=== PATIENT | male | born 1965 | race Caucasian/White ===

== ENCOUNTER 2021-09-15 15:19 | Emergency (ER) | payer OTHER, SELFPAY ==
[2021-09-15 15:40] VITALS: BP 128/78; PULSE 88; RESP 18; TEMP 36.2; O2SAT 98
[2021-09-15 15:50] VITALS: BP 128/78; PULSE 88; RESP 18; TEMP 36.2; O2SAT 98
--- NOTE | 2021-09-15 15:55 | ED.GENADULT ---
HPI - General Adult General Chief complaint: Upper Respiratory Infection Stated complaint: rt side back pain,lightheaded Time Seen by Provider: 09/15/21 15:55 Source: patient, RN notes reviewed and old records reviewed Mode of arrival: ambulatory Limitations: no limitations History of Present Illness HPI narrative: 55-year-old male presents to [facility] accompanied by son with complaints of right lower back pain which has started on Tuesday. Patient states today he felt lightheaded some nausea and felt like the room was spinning. He reports that he had the sudden onset of back pain when he had COVID in March and is concerned he may have it again. Patient denies any chills or sweats or any sore throat, no cough or any shortness of breath. Patient reports that he developed this vertigo today where the room was spinning and he was nauseated, called his son to drive him because when he turns his head the room spins at times.Patient denies any tinnitus, no feelings or pressure or pain to his ears, denies any headache.He reports that he has maintained a good diet and fluid intake today. MD complaint: right sided back pain vertigo and some nausea Severity scale (1-10): 3 Treatments prior to arrival: NSAID and other (Ibuprofen) Related Data Home Medications Medication Instructions Recorded Confirmed calcium carb-ergocalciferol (vit 1 tablet PO DAILY 09/15/21 09/15/21 D2) 600 mg calcium-200 unit tablet cetirizine 10 mg tablet 10 mg PO DAILY 09/15/21 09/15/21 hydrochlorothiazide 12.5 mg tablet 1 tablet DAILY 09/15/21 09/15/21 lisinopril 10 mg tablet 10 tablet DAILY 09/15/21 09/15/21 omeprazole 40 mg capsule,delayed 1 cap DAILY 09/15/21 09/15/21 release Allergies Allergy/AdvReac Type Severity Reaction Status Date / Time No Known Allergies Allergy Verified 09/15/21 15:48 Review of Systems Review of Systems: CONSTITUTIONAL: Denies fever, chills, or sweats. EYES: Denies visual changes, redness, or discharge. ENT: Denies rhinorrhea, congestion, sore throat, or otalgia. CARDIOVASCULAR: Denies chest pain, palpitations, or edema. RESPIRATORY: Denies cough or dyspnea. GASTROINTESTINAL: Denies abdominal pain, some incidences of nausea,no vomiting, or diarrhea. GENITOURINARY: Denies dysuria or hematuria. SKIN: Denies rash or itching. MUSCULOSKELETAL: Positive for right sided low back pain back pain, joint pain, or myalgia. NEUROLOGIC: Denies headache, numbness, or weakness.positive for vertigo PSYCHIATRIC: Denies anxiety or depression. [facility] Past Medical History Medical History (Updated 09/15/21 @ 16:27 by Nicole Rodriguez NP) COVID-22 March 2021 GERD (gastroesophageal reflux disease) Hypertension Surgical History Surgical History (Updated 09/15/21 @ 16:09 by Nicole Rodriguez NP) Previous back surgery Social History Social History (Updated 09/15/21 @ 16:53 by Nicole Rodriguez NP) Smoking status: Never smoker Alcohol intake: current Alcohol use details: rare Substance use type: does not use Living arrangements: with family Gender identity (if verbalized by the patient): Male Comments At time of signature, agree with nursing past medical, surgical, social and family history. There is no relevant family history pertinent to the presenting complaint Exam Narrative: GENERAL: Well-appearing, well-nourished, and in no acute distress. HEAD: Normocephalic, atraumatic. EYES: PERRLA and EOMI. ENT: Nares clear, no rhinorrhea or epistaxis. Mucous membranes moist.TM's vidal with dull light reflex left ear, throat pink with no lesons or exudates, NECK: Supple.no lymphadenopathy CHEST: Clear to auscultation. No respiratory distress.SAO2 98% on room air HEART: Regular rate and rhythm. No murmur heard. Normal peripheral pulses. ABDOMEN: Soft, nontender, nondistended, normal active bowel sounds. EXTREMITIES: Normal range of motion. No edema.some right sided low back pain with no radiation down legs,circulation
[2021-09-15 19:47] LABS: SARS-CoV-2 RNA PCR Negative
== END 2021-09-15 16:39 | disposition home or self-care (01) ==
PROVIDERS: Emergency Provider Registered Nurse; PCP Family Medicine
DX: M54.50 Low back pain, unspecified (principal); R42 Dizziness and giddiness; Z20.822 Contact with and (suspected) exposure to COVID-19; K21.9 Gastro-esophageal reflux disease without esophagitis; I10 Essential (primary) hypertension; Z86.16 Personal history of COVID-19
CPT/HCPCS: 81003; 87426; 87804; 99213; C9803; G0463; U0003; U0005

== ENCOUNTER 2021-09-24 17:10 | Emergency (ER) | payer OTHER, SELFPAY ==
--- NOTE | 2021-09-24 17:12 | ED.URI ---
HPI - URI/Sore Throat General Chief Complaint: Upper Respiratory Infection Stated Complaint: Sore Throat Time Seen by Provider: 09/24/21 17:20 Source: patient Mode of arrival: ambulatory Limitations: no limitations History of Present Illness HPI Narrative: Mr. Rapp is a 55-year-old male with complaints of a swollen uvula since this morning. He reports this is happened to him before and they gave him a shot. He denies any difficulty breathing or swallowing however he reports that the swelling is causing him to cough as he feels like there is something constantly in the back of his throat. Denies any fever or chills. He denies any sore throat. Related Data Home Medications Medication Instructions Recorded Confirmed calcium carb-ergocalciferol (vit 1 tablet PO DAILY 09/15/21 09/24/21 D2) 600 mg calcium-200 unit tablet cetirizine 10 mg tablet 10 mg PO DAILY 09/15/21 09/24/21 hydrochlorothiazide 12.5 mg tablet 1 tablet DAILY 09/15/21 09/24/21 lisinopril 10 mg tablet 10 tablet DAILY 09/15/21 09/24/21 omeprazole 40 mg capsule,delayed 1 cap DAILY 09/15/21 09/24/21 release Allergies Allergy/AdvReac Type Severity Reaction Status Date / Time No Known Allergies Allergy Verified 09/24/21 17:13 Review of Systems Review of Systems: Pertinent positives per HPI. Patient denies any fever, chills, rash, headache, visual changes, dizziness, cough, runny nose, sore throat, shortness of breath, chest pain, palpitations, nausea, vomiting, diarrhea, constipation, abdominal pain, or any urinary issues. [facility] Past Medical History Medical History (Updated 09/24/21 @ 17:23 by George Johnson, SHAWN) COVID-22 March 2021 GERD (gastroesophageal reflux disease) Hypertension Surgical History Surgical History (Updated 09/15/21 @ 16:09 by Nicole Rodriguez NP) Previous back surgery Social History Social History (Updated 09/15/21 @ 16:53 by Nicole Rodriguez NP) Smoking status: Never smoker Alcohol intake: current Alcohol use details: rare Substance use type: does not use Gender identity (if verbalized by the patient): Male Comments At the time of my signature, I reviewed and agree with the nursing past medical, surgical, social, and family history. There is no relevant family history pertinent to the patient complaint. Exam Narrative: General: Well-developed, well nourished, in no apparent distress Head: Normocephalic, atraumatic Eyes: Pupils equally round and reactive to light bilaterally, EOM intact, sclera and conjunctive clear, no discharge, lids normal Ears: TMs intact and clear, ear canals clear, no drainage, grossly hearing normal. Nose: Nares patent, no discharge, no inflammation, no sinus tenderness. Mouth: Oropharynx without lesions or masses, good dentition, MMM. Mild uvula swelling-nonpainful, even rise and fall of uvula with exam Neck: Supple, trachea midline, no enlargement of anterior or posterior cervical nodes, no thyroid masses or goiter palpable. Cardio: Regular rate and rhythm, s1 and s2 normal, no murmur appreciated. Resp: Clear to auscultation bilaterally anteriorly and posteriorly, no rhonchi, rales, wheezing or rubs Course Course Emergency Course: Portions of this record may have been created with voice recognition software. Level of Care: Express Care Visit Vital Signs Vital signs: Vital Signs Temperature 36.7 C 09/24/21 17:14 Pulse Rate 86 09/24/21 17:14 Respiratory Rate 16 09/24/21 17:14 Blood Pressure 121/82 09/24/21 17:14 Pulse Oximetry 98 09/24/21 17:14 Oxygen Delivery Room Air 09/24/21 17:14 Temperature 36.7 C 09/24/21 17:14 Pulse Rate 86 09/24/21 17:14 Respiratory Rate 16 09/24/21 17:14 Blood Pressure 121/82 09/24/21 17:14 Pulse Oximetry 98 09/24/21 17:14 Oxygen Delivery Room Air 09/24/21 17:14 Vital signs reviewed MDM - URI/Sore Throat MDM Narrative Medical decision making narrative: At the time
[2021-09-24 17:14] VITALS: BP 121/82; PULSE 86; RESP 16; TEMP 36.7; O2SAT 98
== END 2021-09-24 17:28 | disposition home or self-care (01) ==
PROVIDERS: Emergency Provider Nurse Practitioner Family; PCP Family Medicine
DX: K12.2 Cellulitis and abscess of mouth (principal); K21.9 Gastro-esophageal reflux disease without esophagitis; I10 Essential (primary) hypertension; Z86.16 Personal history of COVID-19
CPT/HCPCS: 99213; G0463

== ENCOUNTER 2022-07-11 15:42 | Emergency (ER) | payer OTHER, SELFPAY ==
[2022-07-11 15:45] VITALS: BP 127/71; PULSE 80; RESP 18; TEMP 36.3; O2SAT 100
--- NOTE | 2022-07-11 16:00 | ED.URI ---
HPI - URI/Sore Throat General Chief Complaint: Upper Respiratory Infection Stated Complaint: Sore Throat,Bilateral Ear Irritation,Body Aches Time Seen by Provider: 07/11/22 16:02 Source: patient, RN notes reviewed and old records reviewed Mode of arrival: ambulatory Limitations: no limitations History of Present Illness HPI Narrative: 56-year-old male presents to the [facility] with bilateral ear pain, sore throat and body aches since Tuesday. Had taken Mucinex yesterday. Reports taking COVID test yesterday which he reports is negative. Patient declined COVID and flu testing here. Related Data Home Medications Medication Instructions Recorded Confirmed calcium carb-ergocalciferol (vit 1 tablet PO DAILY 09/15/21 07/11/22 D2) 600 mg calcium-200 unit tablet cetirizine 10 mg tablet 10 mg PO DAILY 09/15/21 07/11/22 hydrochlorothiazide 12.5 mg tablet 1 tablet DAILY 09/15/21 07/11/22 lisinopril 10 mg tablet 10 tablet DAILY 09/15/21 07/11/22 omeprazole 40 mg capsule,delayed 1 cap DAILY 09/15/21 07/11/22 release Allergies Allergy/AdvReac Type Severity Reaction Status Date / Time No Known Allergies Allergy Verified 07/11/22 15:53 Review of Systems Review of Systems: All systems reviewed & are unremarkable except as noted in HPI and below Constitutional: Constitutional: Reports as per HPI and Reports body ache(s) Eyes: Eyes: Reports no additional eye complaints ENT: Reports as per HPI, Reports otalgia and Reports sore throat Cardiovascular: Cardiovascular: Reports no additional cardiovascular complaints, Denies chest pain and Denies dyspnea Respiratory: Respiratory: Reports no additional respiratory complaints, Denies chest congestion, Denies cough and Denies dyspnea Gastrointestinal: Gastrointestinal: Reports no additional gastrointestinal complaints, Denies abdominal pain, Denies nausea and Denies vomiting Musculoskeletal: Musculoskeletal: Reports no additional musculoskeletal complaints Integumentary/Breasts: Skin/Breast: Reports system reviewed and no additional complaints, except as docu Neurologic: Reports system reviewed and no additional complaints, except as documented Psychiatric: Psychiatric: Reports no additional psychiatric complaints Allergic/Immunologic: Allergic/Immunologic: Reports no additional allergic/immunologic complaints PMFSH Past Medical History Medical History (Updated 07/11/22 @ 16:31 by Radha Balderas, SHAWN) COVID-22 March 2021 GERD (gastroesophageal reflux disease) Hypertension Surgical History Surgical History Previous back surgery Social History Social History Smoking status: Never smoker Alcohol intake: current Alcohol use details: rare Substance use type: does not use Living arrangements: with family Gender identity (if verbalized by the patient): Male Comments At the time of my signature, I reviewed and agree with the nursing past medical, surgical, social, and family history. There is no relevant family history pertinent to the patient complaint. Exam Const: General: cooperative, healthy appearing, comfortable, no acute distress, well developed, alert and well nourished Nutritional Appearance: well nourished Orientation/consciousness: patient oriented x3 Limitations: no limitations HENMT: Head: normal to inspection Ears: hearing grossly normal bilaterally, external ears normal, EAC's normal and TM abnormal bulging bilateral and with fluid behind the TM bilateral; not erythematous Face/Nose/Sinus: Normal external nose present, Normal nares present, Normal nasal mucous membranes and turbinates present and normal facial exam Face and sinus: normal facial exam Mouth: Yes Normal oral and palatal mucosa present, Yes lip normal and Yes moist mucous membranes Throat: posterior oropharynx normal, uvula midline and postnasal drainage Eyes: Gene
== END 2022-07-11 16:40 | disposition home or self-care (01) ==
PROVIDERS: Emergency Provider Nurse Practitioner; PCP Family Medicine
DX: J02.9 Acute pharyngitis, unspecified (principal); H65.03 Acute serous otitis media, bilateral; R09.82 Postnasal drip; I10 Essential (primary) hypertension
CPT/HCPCS: 87081; 87880; 99213; G0463

== ENCOUNTER 2022-07-26 17:00 | Emergency (ER) | payer OTHER, SELFPAY ==
--- NOTE | 2022-07-26 17:11 | ED.LOWEXIN ---
HPI - Extremity Injury (Lower) General Stated Complaint: toe injury on rt foot Time Seen by Provider: 07/26/22 17:11 Source: patient Mode of arrival: ambulatory Limitations: no limitations History of Present Illness HPI Narrative: 56-year-old male within right 5th toe fracture presented for complaints of pain and swelling to the right foot. Patient states he kicked a bed frame on 07/18/2022, contact his PCP who ordered an x-ray, and was notified 2 days later that the toe was fractured. Patient provided Xray report which confirms fx to proximal phalanx 5th toe. Reports pain to the base of the right 4th and 5th toes, stating the 4th toe was more bruised. Pain worse with walking. Patient already had a post op shoe at home and has been wearing it. He has also been elevating the foot and applying ice, and alternating Tylenol and ibuprofen. Patient is concerned about the swelling and continued pain. Patient has been attempting to f/u with pcp, stating he did not receive much direction after he was notified of the fracture. 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 Also reports history of foot swelling, but states it is not usually this swollen. Related Data Home Medications Medication Instructions Recorded Confirmed calcium carb-ergocalciferol (vit 1 tablet PO DAILY 09/15/21 07/11/22 D2) 600 mg calcium-200 unit tablet cetirizine 10 mg tablet 10 mg PO DAILY 09/15/21 07/11/22 hydrochlorothiazide 12.5 mg tablet 1 tablet DAILY 09/15/21 07/11/22 lisinopril 10 mg tablet 10 tablet DAILY 09/15/21 07/11/22 omeprazole 40 mg capsule,delayed 1 cap DAILY 09/15/21 07/11/22 release Allergies Allergy/AdvReac Type Severity Reaction Status Date / Time No Known Allergies Allergy Verified 07/26/22 17:17 Review of Systems Review of Systems: CONSTITUTIONAL: Denies body aches, fever, chills CARDIOVASCULAR: Denies chest pain, palpitations, or edema. RESPIRATORY: Denies cough or dyspnea. GASTROINTESTINAL: Denies abdominal pain, nausea, vomiting, or diarrhea. SKIN: Denies rash, itching, or wounds. MUSCULOSKELETAL: per HPI NEUROLOGIC: Denies headache or weakness. All systems reviewed & are unremarkable except as noted in HPI and below PMFSH Past Medical History Medical History COVID-22 March 2021 GERD (gastroesophageal reflux disease) Hypertension Surgical History Surgical History Previous back surgery Social History Social History Smoking status: Never smoker Alcohol intake: current Alcohol use details: rare Substance use type: does not use Living arrangements: with family Gender identity (if verbalized by the patient): Male Comments At time of signature, I have reviewed and agree with nursing past medical, surgical, social and family history unless otherwise noted. Please see nursing chart for further information. There is no relevant family history pertinent to the presenting complaint Exam Narrative: GENERAL: Well-appearing CHEST: Speaks in full sentences. No respiratory distress. HEART: Regular rate and rhythm. Normal and equal peripheral pulses. EXTREMITIES: Right foot has normal strength and sensation, normal range of motion. Moderate right dorsal/lateral foot swelling; Ecchymosis noted to 4th and 5th toes. Tender at base of 5th toe. No open wounds or obvious deformity of the 5th toe; alignment normal. Chronic deformity of 2nd toe. pulse palpable and equal bilaterally, skin warm, dry, pink. Capillary refill less than 3 seconds. Wearing post op shoe. SKIN: Warm, dry, no rash. NEURO: Alert and oriented x3. PSYCH: Normal mood and affect Course Course Emergency Course: Patient is aware of diagnosis, understands and agrees to treatment plan. Anticipatory guidance given. Patient agrees to follow-up as directe
[2022-07-26 17:17] VITALS: BP 123/90; PULSE 76; RESP 16; TEMP 36.6; O2SAT 99
== END 2022-07-26 17:32 | disposition home or self-care (01) ==
PROVIDERS: Emergency Provider Nurse Practitioner Family; PCP Family Medicine
DX: M79.674 Pain in right toe(s) (principal); K21.9 Gastro-esophageal reflux disease without esophagitis; I10 Essential (primary) hypertension; Z86.16 Personal history of COVID-19
CPT/HCPCS: 99211; G0463

== ENCOUNTER 2022-10-04 08:13 | Emergency (ER) | payer OTHER, SELFPAY ==
--- NOTE | 2022-10-04 08:16 | ED.GENADULT ---
HPI - General Adult General Chief complaint: Upper Respiratory Infection Stated complaint: Unknown Time Seen by Provider: 10/04/22 08:25 Source: patient, RN notes reviewed and old records reviewed Mode of arrival: ambulatory Limitations: no limitations History of Present Illness HPI narrative: 56-year-old male presents to the [facility] with vague complaints of feeling head fog and occasional tingling in the front of his forehead since Tuesday, 3 days. Patient states it has been intermittent for the last several months. Has had couple of different episodes. States he seen his primary care provider but has not gotten an answer why it is happening. No treatment prior to arrival. Reports being a borderline diabetic Denies any numbness and tingling in extremities. Denies any chest pain, heart fluttering. Denies any abdominal pain. Denies any fevers Onset (ago): day(s) (3) Treatments prior to arrival: none Related Data Home Medications Medication Instructions Recorded Confirmed calcium carb-ergocalciferol (vit 1 tablet PO DAILY 09/15/21 10/04/22 D2) 600 mg calcium-200 unit tablet cetirizine 10 mg tablet 10 mg PO DAILY 09/15/21 10/04/22 hydrochlorothiazide 12.5 mg tablet 1 tablet DAILY 09/15/21 10/04/22 lisinopril 10 mg tablet 10 tablet DAILY 09/15/21 10/04/22 omeprazole 40 mg capsule,delayed 1 cap DAILY 09/15/21 10/04/22 release Allergies Allergy/AdvReac Type Severity Reaction Status Date / Time No Known Allergies Allergy Verified 10/04/22 08:16 Review of Systems Review of Systems: All systems reviewed & are unremarkable except as noted in HPI and below Constitutional: Constitutional: Reports as per HPI, Reports fatigue and Reports other ( head fog ) Eyes: Eyes: Reports no additional eye complaints ENT: Reports system reviewed and no additional complaints, except as documented Cardiovascular: Cardiovascular: Reports no additional cardiovascular complaints, Denies chest pain and Denies dyspnea Respiratory: Respiratory: Reports no additional respiratory complaints, Denies chest congestion, Denies cough and Denies dyspnea Gastrointestinal: Gastrointestinal: Reports no additional gastrointestinal complaints, Denies abdominal pain, Denies nausea and Denies vomiting Musculoskeletal: Musculoskeletal: Reports no additional musculoskeletal complaints Integumentary/Breasts: Skin/Breast: Reports system reviewed and no additional complaints, except as docu Neurologic: Reports system reviewed and no additional complaints, except as documented Psychiatric: Psychiatric: Reports no additional psychiatric complaints Allergic/Immunologic: Allergic/Immunologic: Reports no additional allergic/immunologic complaints PMFSH Past Medical History Medical History COVID-22 March 2021 GERD (gastroesophageal reflux disease) Hypertension Surgical History Surgical History Previous back surgery Social History Social History Smoking status: Never smoker Alcohol intake: current Alcohol use details: rare Substance use type: does not use Living arrangements: with family Gender identity (if verbalized by the patient): Male Comments At the time of my signature, I reviewed and agree with the nursing past medical, surgical, social, and family history. There is no relevant family history pertinent to the patient complaint. Exam Const: General: cooperative, healthy appearing, comfortable, no acute distress, well developed, alert and well nourished Nutritional Appearance: well nourished Orientation/consciousness: patient oriented x3 Limitations: no limitations HENMT: Head: normal to inspection Head images: 1. Reports brain fog just in this area with occasional numb tingling sensation. No erythema or ecchymosis. No blurry vision or change in vis
[2022-10-04 08:21] VITALS: BP 151/83; PULSE 73; RESP 20; TEMP 36.3; O2SAT 99
[2022-10-04 08:37] LABS: Glucose Point of Care 186 mg/dl (65-105)
== END 2022-10-04 08:46 | disposition home or self-care (01) ==
PROVIDERS: Emergency Provider Nurse Practitioner; PCP Family Medicine
DX: I10 Essential (primary) hypertension (principal); R73.9 Hyperglycemia, unspecified; R53.83 Other fatigue; K21.9 Gastro-esophageal reflux disease without esophagitis; Z86.16 Personal history of COVID-19
CPT/HCPCS: 82948; 99212; G0463

== ENCOUNTER 2023-09-18 08:58 | Emergency (ER) | payer OTHER, SELFPAY ==
--- NOTE | ~2023-09-18 | XR_ITS ---
EXAMINATION: XR foot RT min 3V DATE: 09/18/2023 09:29 INDICATION: Pain at the fourth and fifth toes post injury TECHNIQUE: Dorsoplantar, two oblique and lateral views of the right foot were obtained. COMPARISON: None. FINDINGS: Nondisplaced fracture at the palmar/medial aspect of the base of the fifth proximal phalanx. Fracture extends towards the proximal articular surface likely intra-articular however there is no appreciabl e fracture gap or incongruity along articular cortex. Alignment remains essentially anatomic. Right s econd toe is clawed. No other fractures identified. 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 There is some flattening of the articular cortices at the heads of the second and third met atarsals suspicious for chronic osteonecrosis. Moderate-sized Achilles calcaneal enthesophyte. Soft t issue swelling about the base of the fifth toe. IMPRESSION: 1. Nondisplaced likely intra-articular fracture at the base of the right fifth proximal phalanx. Reviewed, dictated and finalized at location A.
[2023-09-18 09:18] VITALS: BP 144/77; PULSE 63; RESP 18; TEMP 36.6; O2SAT 99
--- NOTE | 2023-09-18 09:51 | ED.LOWEXIN ---
HPI - Extremity Injury (Lower) General Chief Complaint: Extremity Injury, Lower Stated Complaint: rt 5th toe injury Time Seen by Provider: 09/18/23 09:29 Source: patient and RN notes reviewed Mode of arrival: ambulatory Limitations: no limitations History of Present Illness HPI Narrative: Patient presents today complaining of pain to his right 4th and 5th toes and metatarsals. He stubbed his foot on his bedpost yesterday morning. 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 Currently rates his pain 4/10 and has been taking Tylenol and applying ice with mild relief. He had fractures in the affected toes last year. Related Data Home Medications Medication Instructions Recorded Confirmed calcium carb-ergocalciferol (vit 1 tablet PO DAILY 09/15/21 09/18/23 D2) 600 mg calcium-200 unit tablet cetirizine 10 mg tablet 10 mg PO DAILY 09/15/21 09/18/23 hydrochlorothiazide 12.5 mg tablet 1 tablet DAILY 09/15/21 09/18/23 lisinopril 10 mg tablet 20 tablet DAILY 09/15/21 09/18/23 omeprazole 40 mg capsule,delayed 1 cap DAILY 09/15/21 09/18/23 release atorvastatin 20 mg tablet 20 mg PO DAILY 09/18/23 09/18/23 Allergies Allergy/AdvReac Type Severity Reaction Status Date / Time No Known Allergies Allergy Verified 09/18/23 09:07 Review of Systems Review of Systems: CONSTITUTIONAL: Denies body aches, fever, chills, or sweats. EYES: Denies visual changes, redness, or discharge. ENT: Denies rhinorrhea, congestion, sore throat, or otalgia. CARDIOVASCULAR: Denies chest pain, palpitations, or edema. RESPIRATORY: Denies cough or dyspnea. GASTROINTESTINAL: Denies abdominal pain, nausea, vomiting, or diarrhea. GENITOURINARY: Denies dysuria or hematuria. SKIN: Denies rash, itching, or wounds. MUSCULOSKELETAL: + right foot pain. NEUROLOGIC: Denies headache, numbness, tingling, or weakness. PSYCH: Denies depression or anxiety. [facility] Past Medical History Medical History (Updated 09/18/23 @ 09:55 by Annika Cancino, GLOBAL SAFETY OFFICER, [employer]) COVID-22 March 2021 GERD (gastroesophageal reflux disease) Hypertension Idiopathic neuropathy Surgical History Surgical History Previous back surgery Social History Social History Smoking status: Never smoker Alcohol intake: current Alcohol use details: rare Substance use type: does not use Living arrangements: with family Gender identity (if verbalized by the patient): Male Comments At time of signature, I have reviewed and agree with nursing past medical, surgical, social and family history unless otherwise noted. Please see nursing chart for further information. There is no relevant family history pertinent to the presenting complaint Exam Narrative: GENERAL: Well-appearing, well-nourished, and in no acute distress. HEAD: Normocephalic, atraumatic. EYES: EOMI. No redness or drainage. Conjunctivae normal. ENT: Mucous membranes pink and moist. NECK: Normal AROM. CHEST: No respiratory distress. EXTREMITIES: Right foot: Tenderness to toes foreign 5 as well as metatarsals foreign 5 with mild ecchymosis to the base of 5th toe extending to the metatarsals. Mild edema to the 5th toe as well. Distal sensation is intact but diminished to baseline. Pedal pulse normal. SKIN: Warm, dry, no rash. Capillary refill normal. Normal skin turgor. NEURO: No focal deficits. Alert and oriented x3. Gait steady. PSYCH: Normal affect. No signs of depression or anxiety. Course Course Level of Care: Express Care Visit Vital Signs Vital signs: Vital Signs Temperature 97.8 F 09/18/23 09:18 Pulse Rate 63 09/18/23 09:18 Respiratory Rate 18 09/18/23 09:18 Blood Pressure 144/77 H 09/18/23 09:18 Pulse Oximetry 99 09/18/23 09:18 Oxygen Delivery Room Air 09/18/23 09:18 Temperature 97.8 F
== END 2023-09-18 09:53 | disposition home or self-care (01) ==
PROVIDERS: Emergency Provider Nurse Practitioner
DX: S92.514A Nondisplaced fracture of proximal phalanx of right lesser toe(s), initial encounter for closed fracture (principal); W22.03XA Walked into furniture, initial encounter; G60.9 Hereditary and idiopathic neuropathy, unspecified; K21.9 Gastro-esophageal reflux disease without esophagitis; I10 Essential (primary) hypertension; Z86.16 Personal history of COVID-19
CPT/HCPCS: 73630; 99213; G0463